=== PATIENT | female | born 1975 | race Caucasian/White ===

== ENCOUNTER 2019-03-25 09:51 | Emergency (ER) | payer OTHER ==
[2019-03-25 10:12] VITALS: BP 107/64
--- NOTE | 2019-03-25 10:26 | UC ---
Lower Extremity/Ankle HPI - HPI Summary HPI Summary: Per electrical products engineer: "Pt dropped a wooden pallet on her L leg on wed at work causing an abrasion and bruising. Pt states today at work she began to have "fire-like" pain in her leg and has developed a lump. " -she has been able to walk on it. no f/c. no bleeding. + bruising which is traveling distally, - History of Current Complaint Chief Complaint: UCGeneralIllness Stated Complaint: LEFT LEG INJURY (WC) Time Seen by Provider: 03/25/19 10:13 Hx Last Menstrual Period: depo provera Pain Intensity: 3 - Allergies/Home Medications Allergies/Adverse Reactions: Allergies Allergy/AdvReac Type Severity Reaction Status Date / Time No Known Allergies Allergy Verified 03/25/19 10:12 PMH/Surg Hx/FS Hx/Imm Hx Previously Healthy: Yes - Surgical History Surgical History: Yes Surgery Procedure, Year, and Place: - Family History Known Family History: Positive: Hypertension - Social History Alcohol Use: None Substance Use Type: None Smoking Status (MU): Light Every Day Tobacco Smoker Type: Cigarettes Amount Used/How Often: 7 cigarettes daily Review of Systems All Other Systems Reviewed And Are Negative: Yes Constitutional: Positive: Negative Skin: Positive: Bruising Eyes: Positive: Negative ENT: Positive: Negative Respiratory: Positive: Negative Cardiovascular: Positive: Negative Gastrointestinal: Positive: Negative Genitourinary: Positive: Negative Motor: Positive: Negative Neurovascular: Positive: Negative Musculoskeletal: Positive: Negative Neurological: Positive: Negative Psychological: Positive: Negative Is Patient Immunocompromised?: No Physical Exam Appearance: Well-Appearing, No Pain Distress, Well-Nourished Vital Signs: Initial Vital Signs Temp 99.1 F 03/25/19 10:08 Pulse 74 03/25/19 10:08 Resp 18 03/25/19 10:08 BP 107/64 03/25/19 10:08 Pulse Ox 100 03/25/19 10:08 Vital Signs Reviewed: Yes Respiratory Exam: Normal Respiratory: Positive: Lungs clear Cardiovascular Exam: Normal Cardiovascular: Positive: RRR Abdominal Exam: Normal Musculoskeletal: Positive: Other: - left distal anterior houser w/ area of slight non blandching eruythema that is cool to tocugh. there is a surrounding purple ecchymosis a w/ central yellow clearing. brusing is traveling duistally fausto left jony-laterakl foot. FROM toes/ankle. slight thenderness over bruising. + 2 DP/PT pul;ses b/l and crisp CR. sensation intact to LT. Neurological Exam: Normal Psychological Exam: Normal Skin: Positive: Other - see above Lower Extremity Course/Dx - Course Course Of Treatment: left tib/fib xray - no fracture - Differential Dx/Diagnosis Differential Diagnosis/HQI/PQRI: Cellulitis, Contusion, Fracture (Closed) Provider Diagnosis: Contusion of left lower leg, initial encounter Discharge ED - Sign-Out/Discharge Documenting (check all that apply): Patient Departure All imaging exams completed and their final reports reviewed: No Studies - Discharge Plan Condition: Stable Disposition: HOME Patient Education Materials: Contusion in Adults (ED) Forms: *Work Release Referrals: Beltran Jackson MD [Primary Care Provider] - 2 Days Additional Instructions: The xray did not show any evidence of fracture. Resting/elevating your leg and applying ice will be helpful. You can take ibuprofen or tylenol for pain. - Billing Disposition and Condition Condition: STABLE Disposition: Home
== END 2019-03-25 11:14 | disposition home or self-care (01) ==
LOC: UCCORT 09:51
DX: S80.12XA Contusion of left lower leg, initial encounter (principal); F17.210 Nicotine dependence, cigarettes, uncomplicated; X58.XXXA Exposure to other specified factors, initial encounter; Y92.9 Unspecified place or not applicable
CPT/HCPCS: 99201; G0463